=== PATIENT | female | born 1965 | race Caucasian/White ===

== ENCOUNTER → 2016-11-02 | Outpatient (CLI) | payer BC ==
[~2016-11-02] MED LIST: ALLEGRA ALLERG180 MG PO; ALLEGRA PO; APETEX LIQ790 MG/15 PO; ASCORBIC ACID500 M3 PO; BENEFIBER; BENEFIBER236 GM PO; CALCIUM 500 MG1 EACH PO; CAPACET CAPSUL1 EACH PO; CELEXA; CITALOPRAM; CO Q-10300 MG PO; CO Q10200 MG PO; COMPAZINE10 MG PO; DAILY MULTIPLE1 EACH PO; DAILY VITAMIN1 EAC8 PO; DEXAMETHASONE4 MG PO; ESCITALOPRAM OX10 MG PO; FISH OIL 1,0001 EA10 PO; FLEXERIL PO; FLEXERIL10 MG PO; FLEXERIL5 MG PO; FLONASE16 G1 BOTH NARES; FLUTICASONE PRO16 GM BOTH NARES; GLUCOSAMINE-CH1 EA52 PO; LEXAPRO10 MG PO; MOTRIN400 MG PO; MOTRIN600 MG PO; MULTIPLE VITAMINS; ONDANSETRON HCL8 MG PO; OXYCODONE HCL5 MG PO; PANTOPRAZOLE; PANTOPRAZOLE SO40 MG PO; PHAZYME PO; PHAZYME ULTRA180 MG PO; POTASSIUM/MAGNESIUM PO; PROBIOTIC1 EAC1 PO; PROPRANOLOL HCL60 MG PO; RANITIDINE; REGLAN10 MG PO; SUMATRIPTAN SU100 MG PO; SUPER CALCIUM600 MG PO; TAMOXIFEN CITRA20 MG PO; TUMERSAID TABL1 EACH PO; VITAMIN B12; VITAMIN D31000 UNIT PO; VITAMIN E400 UNIT PO; VOLTAREN50 MG PO; ZOFRAN8 MG PO; [UNRECOGNIZED DRUG - OTHER]; [UNRECOGNIZED DRUG - OTHER] PO
== END | disposition home or self-care (01) ==
LOC: AMB 08:30
DX: Z45.2 Encounter for adjustment and management of vascular access device (principal); I87.8 Other specified disorders of veins; Z92.21 Personal history of antineoplastic chemotherapy

== ENCOUNTER 2018-01-22 10:54 | Emergency (ER) | payer BC ==
[~2018-01-22] VITALS: Ht 167.6 cm; Wt 68.0 kg
[2018-01-22] MEDS ORDERED: AUGMENTIN875 MG PO (11:20)
[2018-01-22 11:22] LABS: HEMATOCRIT 39.9 % (36.0-46.0); HEMOGLOBIN 13.9 G/DL (11.9-15.5); MCH 32.5 PG (29.0-34.0); MCHC 34.8 G/DL (30.0-36.0); MCV 93.2 FL (83-99); PLATELET COUNT 175 K/uL (156-360); RBC DIS.WIDTH-CV 12.4 % (11.8-14.6); RBC DIS.WIDTH-SD 42.6 % (39-53); RED BLOOD COUNT 4.28 M/uL (3.80-5.20); WHITE BLOOD COUNT 6.6 K/uL (4.1-10.2)
[2018-01-22 11:30] LABS: CHLORIDE 107 mEq/L (99-109); POTASSIUM 4.7 mEq/L (3.7-5.4); SODIUM 143 mEq/L (136-147)
[2018-01-22 11:32] LABS: GLUCOSE 101 mg/dL (70-99)
[2018-01-22 11:36] LABS: CREATININE 0.8 mg/dL (0.6-1.3); GFR ESTIMATE (CALCULATED) > 59 mL/min/
[2018-01-22 11:37] LABS: UREA NITROGEN (BUN) 22 mg/dL (9-23)
[2018-01-22 13:03] VITALS: BP 163/90
== END 2018-01-22 13:04 | disposition home or self-care (01) ==
LOC: EME 10:54
PROVIDERS: Nurse Practitioner Family
DX: S61.431A Puncture wound without foreign body of right hand, initial encounter (principal); L03.113 Cellulitis of right upper limb; W55.01XA Bitten by cat, initial encounter; Z88.2 Allergy status to sulfonamides; Z23 Encounter for immunization; Z29.14 Encounter for prophylactic rabies immune globulin; Z20.3 Contact with and (suspected) exposure to rabies
CPT/HCPCS: 80048; 85027; 99281; 99284

== ENCOUNTER 2018-01-25 10:22 | Emergency (ER) | payer BC ==
[~2018-01-25] VITALS: Ht 167.6 cm; Wt 68.0 kg
[~2018-01-25 10:22] MED LIST changes: +AUGMENTIN875 MG PO
[2018-01-25 12:08] VITALS: BP 136/75
== END 2018-01-25 12:09 | disposition home or self-care (01) ==
LOC: EME 10:22
PROC: 3E0234Z Introduction of Serum, Toxoid and Vaccine into Muscle, Percutaneous Approach (ICD-10-PCS; principal; 2018-01-25)
DX: Z23 Encounter for immunization (principal); Z20.3 Contact with and (suspected) exposure to rabies
CPT/HCPCS: 99281; 99282

== ENCOUNTER 2018-02-05 10:16 | Emergency (ER) | payer BC ==
[~2018-02-05] VITALS: Ht 167.6 cm; Wt 67.9 kg
[2018-02-05 11:15] VITALS: BP 173/88
== END 2018-02-05 11:16 | disposition home or self-care (01) ==
LOC: EME 10:16
DX: S61.451D Open bite of right hand, subsequent encounter (principal); W55.01XD Bitten by cat, subsequent encounter; Z23 Encounter for immunization; Z85.3 Personal history of malignant neoplasm of breast; Z88.2 Allergy status to sulfonamides
CPT/HCPCS: 99281; 99283